=== PATIENT | male | born 1985 | race Hispanic/Latino ===

== ENCOUNTER 2025-01-09 11:18 | Emergency (ER) | payer OTHER, SELFPAY ==
[2025-01-09 11:20] VITALS: BP 138/86
--- NOTE | 2025-01-09 11:38 | ED.GENMED ---
History of Present Illness
General
Chief Complaint: Abdominal Symptoms
Source: patient
Exam Limitations: none
Time Seen by Provider: 01/09/25 11:38
History of Present Illness
History of Present Illness:
39yoM with no significant past medical history presenting for evaluation of multiple complaints. Patient started to notice diffuse muscle cramping about 1 to 2 weeks ago. He thought he may have been dehydrated as he works on a farm and the weather
has been very hot recently. He is also experiencing increased thirst, dry mouth, and increased urination. He is getting up to urinate every hour during the nighttime which is very unusual for him. He is having some nausea but denies any vomiting
or diarrhea. He believes he has lost some weight but has not weighed himself. Patient started to experience blurred vision last week and went to his eye doctor and was prescribed a steroid drop. He had blood work about 2 years ago and he was told
that he was borderline diabetic.
Past History
Past History
ED Past Medical History: None
ED Past Surgical History: None
Social History
Tobacco: Smoker
Alcohol: Occasional
Phy Exam
General Physical Exam
General Presentation: well appearing and no apparent distress
General Skin: warm and dry
General Habitus: normal
General Mental: alert
ENT Exam
ENT Exam: normocephalic
Cardiovascular Exam
Cardiovascular Exam: regular rate/rhythm and no murmur
Pulmonary Exam
Pulmonary Exam: lungs clear, no respiratory distress, no rales, no crackles, no rhonchi and no wheezing
Gastrointestinal Exam
Gastrointestinal Exam: non tender, soft and non distended
Neurological Exam
Neurological Exam: alert
Juancarlos Coma Scale
Eye Opening: Spontaneous
Verbal Response: Oriented
Motor Response: Obeys Commands
GCS Total Score: 15
Skin Exam
Skin Exam: normal color and warm/dry
Psychiatric Exam
Psychiatric Exam: normal mood/affect
Course
Orders/Labs/Results
Orders:
Orders
01/09/25 11:51
Bedside Glucose- Treatment ONCE
01/09/25 11:57
0.9% Sodium Chloride 1000 ml [Nss] 1,000 ml IV BOLUS
01/09/25 12:14
B-Hydroxybutyrate Urgent
Complete Blood Count/With Diff Urgent
Comprehensive Metabolic Panel Urgent
Glycohemoglobin (HgbA1c) Urgent
Magnesium Urgent
Total CK [Creatine Phosphokinase] Urgent
Urinalysis Reflex To Culture Urgent
Date Specimen was Collected: 01/09/25
Time Specimen was Collected: 12:13
Venous Blood Gas Urgent
%Oxygen/Room Air: room air
01/09/25 14:03
Add On- LAB Urgent
Tests Added?: a1c
01/09/25 14:05
0.9% Sodium Chloride 1000 ml [Nss] 1,000 ml IV BOLUS
01/09/25 14:07
Bedside Glucose- Treatment ONCE
01/09/25 14:08
Insulin Human Regular [Novolin R] 7 units IV NOW STA
Abnormal Lab Results
01/09/25 01/09/25 01/09/25
11:55 12:14 14:46
MCV 78.4 L fL
(80.0-94.0)
MCH 26.7 L pg
(27.0-31.0)
RDW 11.3 L %
(11.5-14.5)
MPV 11.3 H fL
(7.4-10.4)
Absolute Lymphs (auto) 0.9 L 10^3/uL
(1.2-3.4)
Lymphocytes % 16.3 L %
(20.5-51.1)
VBG pH 7.44 H
(7.32-7.43)
VBG pO2 224 H mmHg
(30-50)
VBG HCO3 28.5 H mmol/L
(22-27)
Sodium 131 L mmol/L
(135-145)
Chloride 95 L mmol/L
(98-107)
Glucose 541 H* mg/dl
(70-99)
ALT 77 H U/L
(0-50)
Urine Ketones 2+ A
(Negative)
Urine Glucose 4+ A
(Negative)
B-Hydroxybutyrate 0.64 H mmol/L
(0.02-0.27)
POC Glucose 504 H* mg/dl 300 H mg/dl
(70-99) (70-99)
01/09/25 12:14
01/09/25 12:14
Vital Signs
Initial and Last Documented VS:
Initial Vital Signs
Temp Pulse Resp BP Pulse Ox
98.2 F 85 16 138/86 98
01/09/25 11:20 01/09/25 11:20 01/09/25 11:20 01/09/25 11:20 01/09/25 11:20
Last Documented Vital Signs
Temp Pulse Resp BP Pulse Ox
98.2 F 85 16 115/54 100
01/09/25 11:20 01/09/25 11:20 01/09/25 11:20 01/09/25 14:00 01/09/25 15:00
MDM/Problems Addressed
Differential Diagnosis Includes:
39yoM here with polyuria, polydipsia, muscle cramping, blurred vision and weight loss x 2 weeks. VSS. He is well appearing in no distress and exam is reassuring. Fingerstick glucose obtained on initial exam and glucometer is reading high.
Differential diagnosis includes but is not limited to: New onset diabetes, DKA, dehydration, electrolyte abnormality, rhabdomyolysis, ALEJANDRA
Initial ED plan: Check CBC, CMP, VBG, beta hydroxybutyrate, CK, and UA. IV fluid bolus.
*Pulse Oximetry
SaO2: 98
Patient hypoxic: no (98%)
*Critical Care Note
Total Time (30-74mins, 75-104mins- exclusive of procedures): Not Applicable
Update Note
Update Note:
The glucose is 541. Sodium is 131 which corrects to 138 for glucose. Bicarb and anion gap normal which rules out DKA. Remainder of labs unremarkable including normal renal function and CK. Additional fluid bolus and 7 units IV insulin given.
Glucose improved to 300. Attempted to obtain para educator consult but unfortunately they are no longer in house. Will start patient on metformin BID. He was given contact information for both the para educator as well as endocrinology
and he was instructed to call [facility] to schedule a f/u appt. He also has a PCP that he follows with regularly. ED return precautions reviewed and he was discharged in stable condition.
ED Attending Note
-
Portions of this chart may have been created with voice recognition software.� Occasional wrong word or��sound alike� substitutions may have occurred due to the inherent limitations of voice recognition software.
Discharge Plan
Departure
Patient Disposition: Home (Routine Discharge)
Date of Disposition: 01/09/25
Time of Disposition: 15:05
Patient with high blood pressure during this ER visit?: No
Discharge Problem:
Diabetes mellitus, new onset
Instructions: Metformin, Diabetes and diet
Prescriptions:
New
metformin 1,000 mg tablet
1,000 mg PO BID 30 Days Qty: 60 0RF
Referrals:
Jamil Moses CRNP [Family Provider, Family Practice]
Marilee Devlin MD [Consulting Staff, Endocrinology]
Gosia Potts NP [Specified Professional Personl]
Activity Restrictions/Additional Instructions:
Take metformin as prescribed.
Please call tomorrow to schedule a follow-up with the para educator PAULINO as well as your family doctor.
Return to the ER with any new or worsening symptoms.
Interventions
Interventions:
*Risk Screen - Suicide Last Done: 01/09/25 11:20
*General Assessment Last Done: 01/09/25 11:20
*Neglect/Abuse Screening Last Done: 01/09/25 11:20
*ED- Fall Risk Assessment Last Done: 01/09/25 12:12
*ED COVID-19 Vaccine History Last Done: 01/09/25 12:12
*Nursing Disposition Last Done: 01/09/25 15:20
PM-Qsrxnn-Nedjkouwti Assessment Last Done: 01/09/25 12:12
Discharge Date and Time
Discharge Date/Time: 01/09/25 15:21
Print Language: COLOMBIAN
[2025-01-09 11:57] LABS: Glucose - Point of Care 504 mg/dl (70-99)
[2025-01-09 12:12] VITALS: BMI 25.9
[2025-01-09 12:17] VITALS: BP 115/74
[2025-01-09] MEDS: NSS 1000 IV ×2 (12:24→14:25)
[2025-01-09 12:41] LABS: Hematocrit 44.0 % (39.0-52.0); Hemoglobin 15.0 g/dL (13.0-18.0); Mean Corp Hgb Conc. 34.1 g/dL (33.0-37.0); Mean Corpuscular Volume 78.4 fL (80.0-94.0); Nucleated Red Blood Cells % 0 % (-); Platelet Count 199 10^3/uL (130-400); Red Cell Dist. Width 11.3 % (11.5-14.5)
[2025-01-09 12:43] LABS: Urine Character Clear (Clear)
[2025-01-09 12:47] LABS: Venous Blood Gas B.E. 3.8 mmol/L (-4 to +4); Venous Blood Gas O2 Sat % 100.0 %
[2025-01-09 12:48] LABS: Venous Blood Gas O2 Therapy ROOM AIR
[2025-01-09 13:00] VITALS: BP 113/65
[2025-01-09 13:46] LABS: ALT (SGPT) 77 U/L (0-50); AST (SGOT) 27 U/L (17-59); Albumin 4.5 g/dl (3.5-5.0); Alkaline Phosphatase 57 U/L (38-126); Blood Urea Nitrogen 18 mg/dl (9-20); Calcium 9.9 mg/dl (8.4-10.2); Carbon Dioxide 29 mmol/L (22-30); Chloride 95 mmol/L (98-107); Estimated Creatinine Clearance 113 ml/min; Glucose 541 mg/dl (70-99); Magnesium 1.8 mg/dl (1.6-2.3); Potassium 4.4 mmol/L (3.5-5.1); Sodium 131 mmol/L (135-145); Total Protein 7.3 g/dl (6.3-8.2); eGFR > 60.00
[2025-01-09 14:00] VITALS: BP 115/54
[2025-01-09] MEDS: NOVOLIN R 7 UNITS IV (14:20)
[2025-01-09 14:47] LABS: Glucose - Point of Care 300 mg/dl (70-99)
[2025-01-10 09:02] LABS: Glycohemoglobin (HgbA1c) 12.7 % (4.0-5.6)
== END 2025-01-09 15:21 | disposition home or self-care (01) ==
LOC: EMR 11:18
PROVIDERS: Physician Assistant; EMERGENCY PHYSICIAN Emergency Medicine; FAMILY PHYSICIAN Nurse Practitioner Family
DX: H53.8 Other visual disturbances (principal); E11.9 Type 2 diabetes mellitus without complications; R25.2 Cramp and spasm; R35.89 Other polyuria; R63.1 Polydipsia; R68.2 Dry mouth, unspecified; F17.200 Nicotine dependence, unspecified, uncomplicated
CPT/HCPCS: 99284; 96374; 96361 ×2; 80053; 81003; 82010; 82550; 82805; 82962; 83036; 83735; 85025